=== PATIENT | female | born 1975 | race Native Hawaiian/Other Pacific Islander ===

== ENCOUNTER 2020-04-12 11:59 | Outpatient (CLI) | payer OTHER | END 2020-04-12 20:09 | disposition home or self-care (01) | LOC: RAD 11:59 | PROVIDERS: ATTEND Nurse Practitioner Family | DX: U07.1 COVID-19 (principal) ==

== ENCOUNTER 2020-04-19 09:58 | Outpatient (CLI) | payer OTHER | END 2020-04-19 19:49 | disposition home or self-care (01) | LOC: RAD 09:58 | PROVIDERS: ATTEND Nurse Practitioner Family | DX: J18.9 Pneumonia, unspecified organism (principal) ==

== ENCOUNTER 2020-05-04 15:31 | Outpatient (CLI) | payer OTHER | END 2020-05-04 20:58 | disposition home or self-care (01) | LOC: RAD 15:31 | PROVIDERS: ATTEND Nurse Practitioner Family | DX: J18.9 Pneumonia, unspecified organism (principal) ==

== ENCOUNTER 2020-09-23 08:54 | Outpatient (CLI) | payer OTHER | END 2020-09-23 23:33 | disposition home or self-care (01) | LOC: LABW 08:54 | PROVIDERS: ATTEND Nurse Practitioner Family | DX: R80.9 Proteinuria, unspecified (principal) | CPT/HCPCS: 84156 ==